=== PATIENT | male | born 1960 | race African-American/Black ===

== ENCOUNTER 2025-03-14 18:09 | Emergency (ER) | payer OTHER ==
[~2025-03-14] VITALS: Ht 167.6 cm; Wt 80.0 kg
[2025-03-14 18:17] VITALS: TEMP 36.9; O2SAT 97
[2025-03-14] MEDS ORDERED: NITROGLYCERIN 0.4MG TABLET SL SL PRN (19:00)
[2025-03-14 19:16] LABS: HEMOGLOBIN. 12.6 g/dL (14.0-18.0); MEAN CORPUSCULAR HEMOGLOBIN 24.9 pg (28.0-32.0); MEAN CORPUSCULAR HGB CONC 32.4 g/dL (31.0-37.0); MEAN CORPUSCULAR VOLUME 76.8 fL (80.0-94.0); MEAN PLATELET VOLUME 7.9 fl (7.4-10.4); PLATELET 198 x1000/uL (130-400); RED BLOOD CELL COUNT 5.08 mill/uL (4.7-6.1); WHITE BLOOD COUNT 3.2 x1000/uL (4.5-11.0)
[2025-03-14 19:23] LABS: CHLORIDE 105 mEq/L (98-107); POTASSIUM 5.4 mEq/L (3.5-5.1); SODIUM 141 mEq/L (136-145)
[2025-03-14 19:24] LABS: CARBON DIOXIDE 26 mEq/L (21-32)
[2025-03-14 19:25] LABS: CALCIUM 9.2 mg/dL (8.7-10.4)
[2025-03-14 19:29] LABS: CREATININE 0.7 mg/dL (0.6-1.3); GLUCOSE 82 mg/dL (70-105); UREA NITROGEN BLOOD < 5 mg/dL (9-23)
[2025-03-14 19:30] LABS: TROPONIN I HIGH SENSITIVITY 6 ng/L (3.0-53)
[2025-03-14 19:33] LABS: DIFFERENTIAL COMMENT 1
[2025-03-14 19:45] LABS: ETHANOL BLOOD 429 mg/dL (<10)
[2025-03-14] MEDS: ASPIRIN 81MG TABLET PO ONE (20:14)
[2025-03-14 20:18] VITALS: TEMP 98.5
[2025-03-14] MEDS: FOLIC ACID 1 MG, THIAMINE HCL 100 MG, MVI, ADULT NO.1 10 ML in DEXTROSE 5% WATER 1,000 ML IV ONE (20:26)
[2025-03-14 21:34] LABS: HYPOCHROMASIA 1+; MICROCYTOSIS 1+; PLATELET ESTIMATE NORMAL
[2025-03-14 22:27] VITALS: BP 155/105; PULSE 89; RESP 19; O2SAT 96
== END 2025-03-14 22:57 | disposition short-term general hospital (02) ==
LOC: ER 18:09
DX: R07.89 Other chest pain (principal); R10.13 Epigastric pain; E78.00 Pure hypercholesterolemia, unspecified; I10 Essential (primary) hypertension; Z86.73 Personal history of transient ischemic attack (TIA), and cerebral infarction without residual deficits
CPT/HCPCS: 80048; 80320; 83880; 83690; 85025; 84484; 36415; 71045; 93005; 96365; 96366; 99285; Z7610; J3490 ×2; J3411; J7070; G0480